=== PATIENT | male | born 1985 | race African-American/Black ===

== ENCOUNTER 2018-09-11 23:29 | Emergency (ER) | payer OTHER ==
[~2018-09-11] VITALS: Ht 167.6 cm; Wt 54.4 kg
[2018-09-12 00:22] VITALS: BP 114/80
== END 2018-09-12 00:22 | disposition home or self-care (01) ==
LOC: M.ERS 23:29
DX: S00.93XA Contusion of unspecified part of head, initial encounter (principal); W22.8XXA Striking against or struck by other objects, initial encounter; Y92.89 Other specified places as the place of occurrence of the external cause; Y93.89 Activity, other specified; Y99.8 Other external cause status